=== PATIENT | male | born 1965 | race Caucasian/White ===

== ENCOUNTER 2019-04-19 15:02 | Emergency (ER) | payer OTHER ==
[2019-04-19] MEDS ORDERED: SODIUM CHLORIDE 0.9% 1,000 ML IV ONE (15:33)
[2019-04-19 15:38] LABS: BASOPHILS # (AUTO) 0.1 10^3/uL (0.0-0.1); BASOPHILS % (AUTO) 0.9 %; EOSINOPHILS % (AUTO) 0.1 %; HGB - HEMOGLOBIN 14.3 g/dL (14.0-18.0); LYMPHOCYTES % (AUTO) 14.1 %; MEAN CORPUSCULAR HEMOGLOBIN 29.3 pg (27.0-31.0); MEAN CORPUSCULAR HGB CONC 34.2 g/dL (32.0-36.0); MEAN CORPUSCULAR VOLUME 85.7 fL (80.0-94.0); MEAN PLATELET VOLUME 10.7 fL (7.4-11.4); MONOCYTES # (AUTO) 0.9 10^3/uL (0.0-1.0); MONOCYTES % (AUTO) 13.1 %; NEUTROPHILS # (AUTO) 4.9 10^3/uL (1.5-6.6); NEUTROPHILS % (AUTO) 70.8 %; PLT - PLATELET COUNT 266 10^3/uL (130-450); RED BLOOD COUNT 4.88 10^6/uL (4.70-6.10); RED CELL DISTRIBUTION WIDTH 12.8 % (12.0-15.0)
[2019-04-19 15:52] LABS: ALBUMIN 3.4 g/dL (3.2-5.5); ALBUMIN/GLOBULIN RATIO 0.9 (1.0-2.2); BILIRUBIN,TOTAL 0.8 mg/dL (0.2-1.0); CALCIUM 8.4 mg/dL (8.5-10.3)
[2019-04-19 16:19] LABS: BILIRUBIN,URINE NEGATIVE (NEGATIVE); GLUCOSE, URINE (UA) NEGATIVE (NEGATIVE); KETONES,URINE (UA) 15 mg/dL (NEGATIVE); LEUKOCYTE ESTERASE, URINE NEGATIVE (NEGATIVE); NITRITE,URINE NEGATIVE (NEGATIVE); OCCULT BLOOD,URINE TRACE-LYSE (NEGATIVE); PH,URINE 6.5 PH (5.0-7.5); PROTEIN,URINE 30 mg/dL (NEGATIVE); UROBILINOGEN,URINE 0.2 (NORMAL) E.U./dL (NORMAL)
[2019-04-19 16:21] LABS: BACTERIA,URINE None Seen /HPF (None Seen); CASTS, URINE 0-2 Hyaline Casts /LPF; CLARITY,URINE CLEAR (CLEAR); MUCUS,URINE Moderate Strands; RBC,URINE 0-5 /HPF (0-5); SQUAMOUS EPITHELIAL CELL,UR FEW Squamous (<= Few)
[2019-04-19] MEDS ORDERED: ONDANSETRON 4 MG/2 ML VIAL IVP STA (16:52)
[2019-04-19] MEDS ORDERED: DICYCLOMINE 10 MG CAPSULE PO STA (16:52)
[2019-04-19] MEDS ORDERED: KETOROLAC 30 MG/ML VIAL IVP STA (16:52)
[2019-04-19] MEDS ORDERED: LACTATED RINGERS 1,000 ML IV STA (16:52)
--- NOTE | 2019-04-19 16:54 | ED Physician Documentation ---
History of Present Illness - Stated complaint Stated Complaint: VOMITING/WEAKNESS - Chief complaint Chief Complaint: General - History obtained from History obtained from: Patient (53-year-old gentleman with recent travel to [place], he had [place] been in [place] and was [place] when he got sick 6 days ago. It started with chills and body aches. Subsequently a couple of days later and persistently he has severe watery diarrhea. No recent antibiotic use. He complains of abdominal cramps and diarrhea unrelieved by Imodium.) Review of Systems Ten Systems: 10 systems reviewed and negative Constitutional: reports: Chills, Fatigue. denies: Fever Nose: denies: Rhinorrhea / runny nose, Congestion Throat: denies: Sore throat Cardiac: denies: Chest pain / pressure, Palpitations Respiratory: denies: Dyspnea, Cough PD PAST MEDICAL HISTORY - Present Medications Home Medications: Ambulatory Orders Medication Instructions Recorded Confirmed Azithromycin [Zithromax] 2 tab PO DAILY #4 tablet 04/19/19 Dicyclomine [Bentyl] 20 mg PO QID PRN #15 capsule 04/19/19 Ondansetron Odt [Zofran] 4 mg TL Q6H PRN #10 tablet 04/19/19 - Allergies Allergies/Adverse Reactions: Allergies Allergy/AdvReac Type Severity Reaction Status Date / Time No Known Drug Allergies Allergy Verified 04/19/19 15:07 PD ED PE NORMAL - Vitals Vital signs reviewed: Yes - General General: Alert and oriented X 3, No acute distress - HEENT HEENT: Pharynx benign - Neck Neck: Supple, no meningeal sign, No bony TTP - Cardiac Cardiac: RRR, No murmur - Respiratory Respiratory: No respiratory distress, Clear bilaterally - Abdomen Abdomen: Normal bowel sounds, Soft, Non tender - Back Back: No CVA TTP, No spinal TTP - Derm Derm: Normal color, Warm and dry - Extremities Extremities: No edema, No calf tenderness / cord - Neuro Neuro: Alert and oriented X 3, Normal speech Results - Vitals Vitals: Vital Signs - 24 hr 04/19/19 04/19/19 04/19/19 15:07 16:56 17:53 Temperature 37.3 C 38.1 C H 37.7 C H Heart Rate 112 H 102 H 92 Respiratory 18 22 14 Rate Blood Pressure 119/75 133/83 H 116/75 O2 Saturation 99 97 97 Oxygen O2 Source Room air - Labs Labs: Microbiology 04/19/19 16:00 Campylobacter Antigen Assay - Final Stool Laboratory Tests 04/19/19 04/19/19 04/19/19 15:30 15:30 16:00 WBC 7.0 RBC 4.88 Hgb 14.3 Hct 41.8 L MCV 85.7 MCH 29.3 MCHC 34.2 RDW 12.8 Plt Count 266 MPV 10.7 Neut # (Auto) 4.9 Lymph # (Auto) 1.0 L Grant # (Auto) 0.9 Eos # (Auto) 0.0 Baso # (Auto) 0.1 Absolute Nucleated RBC 0.00 Nucleated RBC % 0.0 Sodium 132 L Potassium 3.8 Chloride 98 L Carbon Dioxide 23 Anion Gap 11.0 BUN 14 Creatinine 1.0 Estimated GFR (MDRD) 79 L Glucose 120 H Calcium 8.4 L Total Bilirubin 0.8 AST 40 ALT 58 Alkaline Phosphatase 108 Total Protein 7.0 Albumin 3.4 Globulin 3.6 Albumin/Globulin Ratio 0.9 L Lipase 28 Urine Color YELLOW Urine Clarity CLEAR Urine pH 6.5 Ur Specific [place] 1.015 Urine Protein 30 H Urine Glucose (UA) NEGATIVE Urine Ketones 15 H Urine Occult Blood TRACE-LYSE Urine Nitrite NEGATIVE Urine Bilirubin NEGATIVE Urine Urobilinogen 0.2 (NORMAL) Ur Leukocyte Esterase NEGATIVE Urine RBC 0-5 Urine WBC 0-3 Ur Squamous Epith Cells FEW Squamous Urine Bacteria None Seen Urine Casts 0-2 Hyaline Casts Urine Mucus Moderate Strands Ur Microscopic Review INDICATED Urine Culture Comments NOT INDICATED Stl C. diff Tox B Gene 04/19/19 16:00 WBC RBC Hgb Hct MCV MCH MCHC RDW Plt Count MPV Neut # (Auto) Lymph # (Auto) Grant # (Auto) Eos # (Auto) Baso # (Auto) Absolute Nucleated RBC Nucleated RBC % Sodium Potassium Chloride Carbon Dioxide Anion Gap BUN Creatinine Estimated GFR (MDRD) Glucose Calcium Total Bilirubin AST ALT Alkaline Phosphatase Total Protein Albumin Globulin Albumin/Globulin Ratio Lipase Urine Color Urine Clarity Urine pH Ur Specific [place] Urine Protein Urine Glucose (UA) Urine Ketones Urine Occult Blood Urine Nitrite Urine Bilirubin Urine Urobilinogen Ur Leukocyte Esterase Urine RBC Urine WBC Ur Squamous Epith Cells Urine Bacteria Urine Casts Urine Mucus Ur Microscopic Review Urine Culture Comments Stl C. diff Tox B Gene NEGATIVE PD MEDICAL DECISION MAKING - ED course ED course: 53-year-old gentleman presents with cramps, chills and diarrhea. Found to have Campylobacter and started on Zithromax for same. He got it while traveling in [place]. He does appear dehydrated and received 2 L of IV fluids as well as symptomatic treatments as well. Departure - Departure Disposition: 01 Home, Self Care Clinical Impression: Campylobacter diarrhea Condition: Good Record reviewed to determine appropriate education?: Yes Instructions: ED Diarrhea Bacterial Prescriptions: Azithromycin [Zithromax] 2 tab PO DAILY #4 tablet Dicyclomine [Bentyl] 20 mg PO QID PRN #15 capsule PRN Reason: Abdominal Pain Ondansetron Odt [Zofran] 4 mg TL Q6H PRN #10 tablet PRN Reason: Nausea / Vomiting Comments: It is likely that the health department will contact you. Return if worse or if not better in 48 to 72 hours, expect you to be much better in that timeframe.
[2019-04-19] MEDS ORDERED: AZITHROMYCIN 250 MG TABLET PO STA (17:14)
[2019-04-19 19:02] VITALS: BP 109/67
== END 2019-04-19 19:09 | disposition home or self-care (01) ==
LOC: ED 15:02
DX: A04.5 Campylobacter enteritis (principal)
CPT/HCPCS: 36415; 80053; 81001; 83690; 85025; 87015; 87045; 87046; 87272; 87329; 87493; 99283; 99284; A9270; J7120; 81003; 87086

== ENCOUNTER 2023-12-17 13:15 | Outpatient (CLI) | payer OTHER ==
--- NOTE | 2023-12-17 22:03 | XRAY Report ---
PROCEDURE: Cervical Spine 2-3V INDICATIONS: NECK PAIN TECHNIQUE: 3 view(s) of the cervical spine were acquired. COMPARISON: None. FINDINGS: Bones: No fractures or dislocations to the C7-T1 level. The lateral masses of C1 appear intact on t he odontoid view. No suspicious bony lesions. There is overall straightening of the normal cervical lordosis. Focal degenerative change can be seen involving the C1-C2 interface anteriorly. There is moderate disc space narrowing seen at C5-C6, with mild disc space narrowing at C6-C7. Endplate irregularity and sclerosis are seen, which are worst at C5-C6. Soft tissues: No prevertebral soft tissue swelling. The visualized pulmonary apices are unremarkab le. IMPRESSION: Cervical spine degenerative changes are seen, which are worst at C5-C6. Straightening of the normal cervical lordosis is seen, which is commonly observed in patients with mu scular spasm. If it would be helpful for clinical management decision making, please consider a dedicated cervical spine MRI for further evaluation (assuming that there is no contraindication). Reviewed by: Giovani Gilman MD on 12/17/2023 9:02 PM LILIANE Approved by: Giovani Gilman MD on 12/17/2023 9:02 PM LILIANE Station ID: [id number]
== END 2023-12-17 13:16 | disposition home or self-care (01) ==
LOC: DI 13:15
PROVIDERS: ATTEND Student in an Organized Health Care Education/Training Program
DX: M47.812 Spondylosis without myelopathy or radiculopathy, cervical region (principal)